=== PATIENT | male | born 1945 | race Caucasian/White ===

== ENCOUNTER 2021-07-12 06:51 | Inpatient (IN) ==
[2021-07-12 08:06] LABS: Basophils % 0.5 % (0.0-0.8); Eosinophils # 0.1 10*3/uL (0.0-0.87); Hematocrit 42.7 VOL% (42.0-52.0); Hemoglobin 14.3 GM/DL (14.0-18.0); Immature Granulocytes % 0.5 %; Immature Granulocytes Absolute 0.04 #; Lymphocytes % 12.3 % (21.2-54.2); Mean Corpuscular HGB Conc 33.5 GM/DL (32-36); Mean Corpuscular Volume 83.9 FL (87-102); Mean Platelet Volume 9.6 FL (9.6-12.0); Monocytes % 10.1 % (1.7-12.7); Neutrophils % 75.6 % (38.7-73.9); Platelet Count 332 T/CUMM (130-400); Red Blood Count 5.09 MC/CUMM (3.8-5.5); Red Cell Distribution Width 13.2 % (9.3-17.3); White Blood Count 8.2 T/CUMM (4-12)
[2021-07-12 08:30] LABS: Bilirubin,Total 0.8 MG/DL (0.20-1.00); Calcium 8.7 MG/DL (8.5-10.1); Osmolality,Calculated 279.2 MOS/KG (273-304); Potassium 2.6 MMOL/L (3.5-5.1); Total Protein 7.1 G/DL (6.4-8.2)
[2021-07-12] MEDS ORDERED: SODIUM CHLORIDE 0.9% 1,000 ML IV STA (08:37)
[2021-07-12] MEDS ORDERED: ACETAMINOPHEN 325 MG TABLET PO PRN (09:37)
[2021-07-12] MEDS ORDERED: PIPERACILLIN/TAZOBACTAM 3,375 MG in SODIUM CHLORIDE 0.9% 100 ML IV STA (09:37)
[2021-07-12] MEDS ORDERED: ONDANSETRON 4 MG/2 ML VIAL IV PRN ×2 (09:37→10:37)
[2021-07-12] MEDS: SODIUM CHLORIDE 0.9% 1,000 ML IV SCH ×2 (09:55→22:25)
[2021-07-12] MEDS ORDERED: SODIUM PHOSPHATE ENEMA 133 ML BOTTLE RECTAL ONE (10:00)
[2021-07-12] MEDS ORDERED: MORPHINE 2 MG/1 ML SYRINGE IV PRN ×2 (10:37)
[2021-07-12] MEDS ORDERED: SODIUM PHOSPHATE ENEMA 133 ML BOTTLE RECTAL STA (10:38)
[2021-07-12] MEDS ORDERED: hydrALAZINE 20 MG/1 ML VIAL IV PRN (10:39)
[2021-07-12] MEDS ORDERED: POTASSIUM CHLORIDE RIDER 10 MEQ/100 ML PREMIX IV PRN (10:41)
[2021-07-12] MEDS ORDERED: SODIUM CHLOR 0.9% KCL 20 MEQ 20 MEQ/1,000 ML BAG IV SCH (11:00)
[2021-07-12] MEDS: PIPERACILLIN/TAZOBACTAM 3,375 MG in SODIUM CHLORIDE 0.9% 100 ML IV SCH ×2 (11:01→23:22)
[2021-07-12] MEDS ORDERED: NEOSTIGMINE 10 MG/10 ML VIAL IV ONE (11:13)
[2021-07-12] MEDS ORDERED: ATROPINE 1 MG/10 ML SYRINGE ONE (11:46)
[2021-07-12 11:49] LABS: Bilirubin,Urine Negative (Negative); Blood, Urine Negative (Negative); Glucose,Urine (UA) Negative (Negative); Hyaline Casts,Urine 3 /LPF (0-3); Ketones,Urine 20 mg/dL (Negative); Mucus,Urine Occasional /LPF (Occasional); Nitrite,Urine Negative (Negative); Protein,Urine 30 MG/DL; RBC,Urine 2 /HPF (0-4); Squamous Epithelial Cell,Urine Occasional /HPF (0-10); Urine Appearance CLOUDY (Clear); Urine Color Yellow (Yellow); Urine Specific Gravity 1.028 (1.001-1.035); Urine Urobilinogen < 2.0 EU/DL (<2.0)
[2021-07-12] MEDS ORDERED: ATROPINE 1 MG/10 ML SYRINGE IV ONE (11:58)
[2021-07-12] MEDS ORDERED: INFLUENZA VIRUS VACCINE 0.5 ML SYRINGE IM ONE (17:09)
[2021-07-12] MEDS ORDERED: EPINEPHrine 1 MG/10 ML SYRINGE IV ONE (18:15)
[2021-07-12] MEDS ORDERED: SODIUM BICARBONATE 50 MEQ/50 ML SYRINGE IV ONE ×3 (18:16→22:58)
[2021-07-12] MEDS ORDERED: EPINEPHrine 1 MG/ML VIAL IV ONE (18:17)
[2021-07-12] MEDS ORDERED: CALCIUM CHLORIDE 1,000 MG/10 ML SYRINGE IV ONE (18:18)
[2021-07-12] MEDS ORDERED: SODIUM CHLORIDE 0.9% 10 ML VIAL IV ONE (18:20)
[2021-07-12] MEDS ORDERED: HEPARIN/NACL 0.9% 2 UNITS/ML 1,000 UNIT/500 ML BAG IV ONE (18:36)
[2021-07-12] MEDS ORDERED: ALBUMIN 5% 25.0 GM/500 ML VIAL IV ONE ×2 (18:37→21:16)
[2021-07-12] MEDS ORDERED: ROCURONIUM 50 MG/5 ML VIAL IV ONE (18:43)
[2021-07-12] MEDS ORDERED: fentaNYL 100 MCG/2 ML VIAL ONE (18:44)
[2021-07-12] MEDS ORDERED: MIDAZOLAM 2 MG/2 ML VIAL ONE ×3 (18:44→19:55)
[2021-07-12 18:47] LABS: Albumin 2.7 G/DL (3.4-5.0); Calcium 9.1 MG/DL (8.5-10.1); Osmolality,Calculated 277.5 MOS/KG (273-304); Potassium 3.8 MMOL/L (3.5-5.1)
[2021-07-12] MEDS ORDERED: PHENYLEPHRINE DRIP 40 MG/250 ML PREMIX IV ONE (18:47)
[2021-07-12] MEDS ORDERED: NOREPINEPHRINE 4 MG/4 ML VIAL IV ONE (18:59)
[2021-07-12] MEDS ORDERED: EPINEPHrine 1 MG/ML VIAL ONE ×2 (19:00→20:50)
[2021-07-12 19:06] LABS: Basophils % 0.3 % (0.0-0.8); Eosinophils # 0.1 10*3/uL (0.0-0.87); Eosinophils % 0.6 % (0.00-10.9); Hematocrit 44.3 VOL% (42.0-52.0); Hemoglobin 14.6 GM/DL (14.0-18.0); Immature Granulocytes % 0.5 %; Immature Granulocytes Absolute 0.04 #; Lymphocytes # 1.7 10*3/uL (1.4-4.0); Lymphocytes % 21.5 % (21.2-54.2); Mean Corpuscular Volume 84.9 FL (87-102); Mean Platelet Volume 10.4 FL (9.6-12.0); Neutrophils % 68.1 % (38.7-73.9); Platelet Count 382 T/CUMM (130-400); Red Blood Count 5.22 MC/CUMM (3.8-5.5); Red Cell Distribution Width 13.2 % (9.3-17.3)
[2021-07-12] MEDS ORDERED: KETAMINE 500 MG/10 ML VIAL ONE (19:07)
[2021-07-12 19:19] LABS: ABG Base Excess -18.2 MMOL/L (-2.5-2.5); ABG Oxygen Saturation 76.1 % (95-100); ABG PCO2 54.6 MM HG (35-48); ABG TCO2 13.3 MMOL/L (23-27); Glucose Heart Surgery 114 MG/DL (74-106); Hematocrit Heart Surgery 39.2 PERCENT (42-52); Hemoglobin Heart Surgery 12.7 G/DL (14.0-18.0); Potassium Heart/CVR 2.8 MMOL/L (3.5-5.1)
[2021-07-12 19:22] VITALS: BP 0/0
[2021-07-12 19:25] LABS: ABG PH 7.013 (7.35-7.45)
[2021-07-12 19:56] LABS: ABG Base Excess -12.9 MMOL/L (-2.5-2.5); ABG HCO3 14.5 MMOL/L (20-26); ABG Oxygen Saturation 98.6 % (95-100); ABG PCO2 38.5 MM HG (35-48); ABG TCO2 13.7 MMOL/L (23-27); Glucose Heart Surgery 109 MG/DL (74-106); Hematocrit Heart Surgery 33.8 PERCENT (42-52); Potassium Heart/CVR 2.8 MMOL/L (3.5-5.1)
[2021-07-12 20:00] LABS: ABG PH 7.192 (7.35-7.45)
[2021-07-12] MEDS ORDERED: SODIUM BICARBONATE 50 MEQ/50 ML VIAL IV ONE ×4 (20:04→22:57)
[2021-07-12] MEDS: PHENYLEPHRINE DRIP 40 MG/250 ML PREMIX IV PRN ×2 (20:55→22:24)
[2021-07-12] MEDS: NOREPINEPHRINE 8 MG in SODIUM CHLORIDE 0.9% 242 ML IV PRN (20:55)
[2021-07-12] MEDS ORDERED: LACTATED RINGERS 1,000 ML IV ONE ×2 (20:56→22:57)
[2021-07-12] MEDS ORDERED: fentaNYL INJ 1,250 MCG in SODIUM CHLORIDE 0.9% 225 ML IV PRN (20:56)
[2021-07-12] MEDS ORDERED: LACTATED RINGERS 1,000 ML IV SCH (21:00)
[2021-07-12] MEDS ORDERED: DOCUSATE SODIUM 100 MG CAPSULE PO SCH (21:00)
[2021-07-12] MEDS ORDERED: SEVOFLURANE 1 UNIT/15 MINUTE INH ONE (21:13)
[2021-07-12] MEDS ORDERED: EPINEPHrine 1 MG/10 ML SYRINGE ONE (21:13)
[2021-07-12] MEDS ORDERED: LACTATED RINGERS 2,000 ML IV ONE (21:14)
[2021-07-12] MEDS ORDERED: PHENYLEPHRINE DRIP 20 MG/250 ML PREMIX IV ONE (21:16)
[2021-07-12 21:33] LABS: Basophils % 0.3 % (0.0-0.8); Hemoglobin 10.3 GM/DL (14.0-18.0); Immature Granulocytes % 3.5 %; Immature Granulocytes Absolute 0.12 #; Lymphocytes # 0.4 10*3/uL (1.4-4.0); Lymphocytes % 11.5 % (21.2-54.2); Mean Corpuscular HGB Conc 32.2 GM/DL (32-36); Mean Corpuscular Volume 87.9 FL (87-102); Mean Platelet Volume 8.9 FL (9.6-12.0); Monocytes % 5.9 % (1.7-12.7); Neutrophils % 78.8 % (38.7-73.9); Platelet Count 205 T/CUMM (130-400); Red Blood Count 3.64 MC/CUMM (3.8-5.5); Red Cell Distribution Width 13.2 % (9.3-17.3); White Blood Count 3.4 T/CUMM (4-12)
[2021-07-12 21:37] LABS: ABG Base Excess -10.6 MMOL/L (-2.5-2.5); ABG Oxygen Saturation 92.7 % (95-100); ABG PCO2 59.6 MM HG (35-48); ABG PO2 93.3 MM HG (80-95); ABG TCO2 18.4 MMOL/L (23-27)
[2021-07-12 21:50] LABS: Calcium 7.5 MG/DL (8.5-10.1); Potassium 2.6 MMOL/L (3.5-5.1)
[2021-07-12 22:05] LABS: Acanthocytes 1+; Eosinophils 1 % (0-10); Lymphocytes 21 % (20-55); Platelet Estimate Adequate; Segmented Neutrophils 71 % (50-85); Total Cells Counted 100
[2021-07-12] MEDS ORDERED: POTASSIUM CHLORIDE RIDER 10 MEQ/100 ML PREMIX IV ONE (22:14)
[2021-07-12] MEDS: POTASSIUM CHLORIDE RIDER 10 MEQ/100 ML PREMIX IV PRN ×2 (22:23→23:30)
[2021-07-12 22:49] LABS: ABG HCO3 17.9 MMOL/L (20-26); ABG Oxygen Saturation 96.3 % (95-100); ABG PCO2 53.5 MM HG (35-48); ABG TCO2 19.2 MMOL/L (23-27)
[2021-07-12 22:51] LABS: ABG PH 7.192 (7.35-7.45)
[2021-07-12] MEDS ORDERED: VANCOMYCIN INJ 1,500 MG in SODIUM CHLORIDE 0.9% 500 ML IV PRN (22:59)
[2021-07-12] MEDS ORDERED: VANCOMYCIN INJ 1,500 MG in SODIUM CHLORIDE 0.9% 500 ML IV ONE (23:00)
[2021-07-12] MEDS ORDERED: CALCIUM GLUCONATE 1,000 MG in SODIUM CHLORIDE 0.9% 100 ML IV ONE (23:38)
[2021-07-12] MEDS: SODIUM BICARB INJ 100 MEQ in STERILE WATER INJ 1,000 ML IV SCH (23:40)
[2021-07-13] MEDS: PHENYLEPHRINE INJ 160 MG in SODIUM CHLORIDE 0.9% 234 ML IV PRN ×4 (00:07→14:50)
[2021-07-13] MEDS: POTASSIUM CHLORIDE RIDER 10 MEQ/100 ML PREMIX IV PRN ×3 (00:56→02:58)
[2021-07-13] MEDS: NOREPINEPHRINE 16 MG in SODIUM CHLORIDE 0.9% 234 ML IV PRN ×7 (01:14→21:30)
[2021-07-13] MEDS ORDERED: LACTATED RINGERS 1,000 ML IV ONE ×5 (03:15→15:00)
[2021-07-13 03:18] LABS: ABG Base Excess -7.5 MMOL/L (-2.5-2.5); ABG HCO3 18.3 MMOL/L (20-26); ABG Oxygen Saturation 98.4 % (95-100); ABG PCO2 47.2 MM HG (35-48); ABG PH 7.235 (7.35-7.45); ABG TCO2 18.4 MMOL/L (23-27)
[2021-07-13 03:29] LABS: Basophils % 0.4 % (0.0-0.8); Hematocrit 32.7 VOL% (42.0-52.0); Hemoglobin 10.7 GM/DL (14.0-18.0); Lymphocytes # 0.3 10*3/uL (1.4-4.0); Lymphocytes % 12.7 % (21.2-54.2); Mean Corpuscular HGB Conc 32.7 GM/DL (32-36); Mean Corpuscular Volume 86.1 FL (87-102); Mean Platelet Volume 9.5 FL (9.6-12.0); Monocytes % 8.6 % (1.7-12.7); Neutrophils % 78.3 % (38.7-73.9); Platelet Count 221 T/CUMM (130-400); Red Cell Distribution Width 13.6 % (9.3-17.3); White Blood Count 2.7 T/CUMM (4-12)
[2021-07-13 03:45] LABS: Calcium 7.6 MG/DL (8.5-10.1); Osmolality,Calculated 294.3 MOS/KG (273-304); Potassium 3.1 MMOL/L (3.5-5.1)
[2021-07-13 04:00] LABS: Band Neutrophils 5 % (0-10); Lymphocytes 17 % (20-55); Platelet Estimate Adequate; Segmented Neutrophils 71 % (50-85); Total Cells Counted 100
[2021-07-13] MEDS: PIPERACILLIN/TAZOBACTAM 3,375 MG in SODIUM CHLORIDE 0.9% 100 ML IV SCH ×3 (04:20→18:30)
[2021-07-13 04:41] LABS: ABG Base Excess -9.4 MMOL/L (-2.5-2.5); ABG HCO3 16.9 MMOL/L (20-26); ABG Oxygen Saturation 98.6 % (95-100); ABG PCO2 41.8 MM HG (35-48); ABG PH 7.235 (7.35-7.45); ABG TCO2 16.3 MMOL/L (23-27)
[2021-07-13] MEDS: POTASSIUM CHLORIDE RIDER 20 MEQ/100 ML PREMIX IV PRN ×4 (04:48→23:45)
[2021-07-13] MEDS ORDERED: SODIUM BICARBONATE 50 MEQ/50 ML VIAL IV ONE (05:03)
[2021-07-13] MEDS ORDERED: ALBUMIN 5% 12.5 GM/250 ML VIAL IV ONE ×2 (06:22→06:25)
[2021-07-13] MEDS ORDERED: NOREPINEPHRINE 4 MG/4 ML VIAL IV ONE (06:36)
[2021-07-13] MEDS ORDERED: ROCURONIUM 500 MG in SODIUM CHLORIDE 0.9% 500 ML IV PRN (08:00)
[2021-07-13] MEDS: SODIUM BICARB INJ 100 MEQ in STERILE WATER INJ 1,000 ML IV SCH ×3 (08:30→21:30)
[2021-07-13] MEDS: VASOPRESSIN 100 UNITS in SODIUM CHLORIDE 0.9% 95 ML IV PRN (09:00)
[2021-07-13] MEDS: PANTOPRAZOLE 40 MG VIAL IV SCH (09:00)
[2021-07-13] MEDS ORDERED: amLODIPine 5 MG TABLET PO SCH (09:00)
[2021-07-13] MEDS ORDERED: CLINDAMYCIN INJ 900 MG/50 ML PREMIX IV ONE (09:09)
[2021-07-13] MEDS: MIDAZOLAM 100 MG in SODIUM CHLORIDE 0.9% 80 ML IV PRN (09:40)
[2021-07-13] MEDS ORDERED: MIDAZOLAM 2 MG/2 ML VIAL ONE (09:46)
[2021-07-13] MEDS ORDERED: PHENYLEPHRINE 1 MG/10 ML SYRINGE IV ONE (10:35)
[2021-07-13] MEDS ORDERED: SEVOFLURANE 1 UNIT/15 MINUTE INH ONE (10:35)
[2021-07-13] MEDS: NOREPINEPHRINE 8 MG in SODIUM CHLORIDE 0.9% 242 ML IV PRN (12:05)
[2021-07-13 12:08] LABS: ABG Base Excess -10.6 MMOL/L (-2.5-2.5); ABG HCO3 15.6 MMOL/L (20-26); ABG Oxygen Saturation 98.4 % (95-100); ABG PCO2 35.4 MM HG (35-48); ABG PH 7.261 (7.35-7.45); ABG PO2 178.8 MM HG (80-95); ABG TCO2 16.7 MMOL/L (23-27)
[2021-07-13 18:21] LABS: ABG Base Excess -9.3 MMOL/L (-2.5-2.5); ABG Oxygen Saturation 99.4 % (95-100); ABG PCO2 35.1 MM HG (35-48); ABG PH 7.283 (7.35-7.45); ABG TCO2 15.2 MMOL/L (23-27); Glucose Heart Surgery 116 MG/DL (74-106); Hematocrit Heart Surgery 32.2 PERCENT (42-52); Hemoglobin Heart Surgery 10.4 G/DL (14.0-18.0); Potassium Heart/CVR 2.9 MMOL/L (3.5-5.1)
[2021-07-14] MEDS: NOREPINEPHRINE 16 MG in SODIUM CHLORIDE 0.9% 234 ML IV PRN ×9 (00:05→23:35)
[2021-07-14 02:11] LABS: Basophils % 0.1 % (0.0-0.8); Hematocrit 29.3 VOL% (42.0-52.0); Hemoglobin 9.8 GM/DL (14.0-18.0); Immature Granulocytes % 1.6 %; Immature Granulocytes Absolute 0.16 #; Lymphocytes # 0.6 10*3/uL (1.4-4.0); Lymphocytes % 6.4 % (21.2-54.2); Mean Corpuscular HGB Conc 33.4 GM/DL (32-36); Mean Corpuscular Volume 84.7 FL (87-102); Mean Platelet Volume 10.2 FL (9.6-12.0); Monocytes % 4.5 % (1.7-12.7); Neutrophils % 87.4 % (38.7-73.9); Platelet Count 138 T/CUMM (130-400); Red Blood Count 3.46 MC/CUMM (3.8-5.5); Red Cell Distribution Width 13.6 % (9.3-17.3)
[2021-07-14 02:12] LABS: ABG Base Excess -5.8 MMOL/L (-2.5-2.5); ABG HCO3 19.6 MMOL/L (20-26); ABG Oxygen Saturation 99.1 % (95-100); ABG PCO2 33.7 MM HG (35-48); ABG PH 7.357 (7.35-7.45); ABG TCO2 17.3 MMOL/L (23-27)
[2021-07-14 02:41] LABS: Lymphocytes 12 % (20-55); Segmented Neutrophils 86 % (50-85); Total Cells Counted 100
[2021-07-14 02:42] LABS: Acanthocytes 1+; Albumin 1.4 G/DL (3.4-5.0); Bilirubin,Total 1.4 MG/DL (0.20-1.00); Calcium 6.4 MG/DL (8.5-10.1); Osmolality,Calculated 284.5 MOS/KG (273-304); Platelet Estimate Decreased; Potassium 3.6 MMOL/L (3.5-5.1); Total Protein 3.6 G/DL (6.4-8.2)
[2021-07-14] MEDS: DEXTROSE 10% 250 ML BAG IV PRN ×3 (02:44→23:50)
[2021-07-14] MEDS: PIPERACILLIN/TAZOBACTAM 3,375 MG in SODIUM CHLORIDE 0.9% 100 ML IV SCH ×3 (04:25→18:30)
[2021-07-14] MEDS: SODIUM BICARB INJ 100 MEQ in STERILE WATER INJ 1,000 ML IV SCH ×4 (04:45→20:52)
[2021-07-14] MEDS: POTASSIUM CHLORIDE RIDER 10 MEQ/100 ML PREMIX IV PRN (05:05)
[2021-07-14] MEDS ORDERED: NOREPINEPHRINE 4 MG/4 ML VIAL IV ONE ×2 (07:51→18:55)
[2021-07-14] MEDS ORDERED: LACTATED RINGERS 1,000 ML IV ONE (08:06)
[2021-07-14] MEDS: PANTOPRAZOLE 40 MG VIAL IV SCH (08:32)
[2021-07-14] MEDS ORDERED: ROCURONIUM 50 MG/5 ML VIAL IV ONE (08:58)
[2021-07-14] MEDS ORDERED: MIDAZOLAM 2 MG/2 ML VIAL ONE (08:58)
[2021-07-14] MEDS ORDERED: SODIUM CHLORIDE 0.9% 100 ML IV ONE (08:58)
[2021-07-14] MEDS ORDERED: EPINEPHrine 1 MG/ML VIAL ONE (08:58)
[2021-07-14] MEDS: HYDROCORTISONE 100 MG VIAL IV SCH ×3 (09:05→21:15)
[2021-07-14] MEDS: MIDAZOLAM 100 MG in SODIUM CHLORIDE 0.9% 80 ML IV PRN (09:09)
[2021-07-14] MEDS ORDERED: ALBUMIN 5% 0 GM/0 ML VIAL IV ONE (09:11)
[2021-07-14] MEDS ORDERED: VANCOMYCIN INJ 1,500 MG in SODIUM CHLORIDE 0.9% 500 ML IV ONE (09:30)
[2021-07-14] MEDS ORDERED: ALBUMIN 5% 25 GM/500 ML VIAL IV ONE (15:17)
[2021-07-14] MEDS: DEXTROSE 5% LACTATED RINGERS 1,000 ML IV SCH (18:00)
[2021-07-15] MEDS: HYDROCORTISONE 100 MG VIAL IV SCH ×4 (02:30→21:25)
[2021-07-15] MEDS: PIPERACILLIN/TAZOBACTAM 3,375 MG in SODIUM CHLORIDE 0.9% 100 ML IV SCH ×3 (02:30→18:30)
[2021-07-15] MEDS: SODIUM BICARB INJ 100 MEQ in STERILE WATER INJ 1,000 ML IV SCH ×4 (02:35→20:00)
[2021-07-15 03:58] LABS: ABG Base Excess -5.2 MMOL/L (-2.5-2.5); ABG HCO3 18.6 MMOL/L (20-26); ABG Oxygen Saturation 94.2 % (95-100); ABG PCO2 29.8 MM HG (35-48); ABG PH 7.413 (7.35-7.45); ABG PO2 80.3 MM HG (80-95); ABG TCO2 19.5 MMOL/L (23-27)
[2021-07-15 04:06] LABS: Basophils # 0.1 10*3/uL (0.0-0.2); Basophils % 0.6 % (0.0-0.8); Hematocrit 25.4 VOL% (42.0-52.0); Hemoglobin 8.4 GM/DL (14.0-18.0); Immature Granulocytes % 0.2 %; Immature Granulocytes Absolute 0.04 #; Lymphocytes # 0.8 10*3/uL (1.4-4.0); Lymphocytes % 3.3 % (21.2-54.2); Mean Corpuscular HGB Conc 33.1 GM/DL (32-36); Mean Corpuscular Volume 85.2 FL (87-102); Mean Platelet Volume 10.8 FL (9.6-12.0); Monocytes % 2.1 % (1.7-12.7); NRBC # 0.03 10*3/uL; Neutrophils % 93.8 % (38.7-73.9); Platelet Count 120 T/CUMM (130-400); Red Blood Count 2.98 MC/CUMM (3.8-5.5); Red Cell Distribution Width 13.9 % (9.3-17.3); White Blood Count 22.9 T/CUMM (4-12)
[2021-07-15 04:40] LABS: Albumin 1.5 G/DL (3.4-5.0); Bilirubin,Total 3.1 MG/DL (0.20-1.00); Osmolality,Calculated 277.2 MOS/KG (273-304); Potassium 4.8 MMOL/L (3.5-5.1); Total Protein 3.6 G/DL (6.4-8.2)
[2021-07-15 04:47] LABS: Calcium 5.8 MG/DL (8.5-10.1)
[2021-07-15 05:14] LABS: Acanthocytes 1+; Lymphocytes 7 % (20-55); Platelet Estimate Decreased; Segmented Neutrophils 87 % (50-85); Total Cells Counted 100
[2021-07-15 05:15] LABS: Schistocytes 1+
[2021-07-15] MEDS ORDERED: CALCIUM GLUCONATE RIDER 1,000 MG/50 ML PREMIX IV ONE (05:19)
[2021-07-15] MEDS: NOREPINEPHRINE 16 MG in SODIUM CHLORIDE 0.9% 234 ML IV PRN ×3 (07:15→18:00)
[2021-07-15] MEDS ORDERED: CALCIUM GLUCONATE RIDER 2,000 MG/100 ML PREMIX IV ONE (08:38)
[2021-07-15] MEDS: PANTOPRAZOLE 40 MG VIAL IV SCH (09:19)
[2021-07-15] MEDS: DEXTROSE 5% LACTATED RINGERS 1,000 ML IV SCH (11:58)
[2021-07-15] MEDS: VASOPRESSIN 100 UNITS in SODIUM CHLORIDE 0.9% 95 ML IV PRN (16:10)
[2021-07-15] MEDS ORDERED: DEXTROSE 10% 1,000 ML IV PRN (17:00)
[2021-07-15] MEDS ORDERED: DEXTROSE 70% IV SCH (17:00)
[2021-07-15] MEDS ORDERED: AMINO ACIDS 10% IV SCH (17:00)
[2021-07-15 21:01] LABS: Osmolality,Calculated 277.7 MOS/KG (273-304); Potassium 4.6 MMOL/L (3.5-5.1)
[2021-07-15 21:58] LABS: Hepatitis B Core IgM Quant 0.25 Index; Hepatitis B Surface Ag Quant 0.25 Index; Hepatitis B Surface Ag Result Non-Reactive (NonReactive); Hepatitis C Virus Ab Quant 0.08 Index; Hepatitis C Virus Ab Result Non-Reactive (NonReactive)
[2021-07-16] MEDS: NOREPINEPHRINE 16 MG in SODIUM CHLORIDE 0.9% 234 ML IV PRN ×5 (00:26→23:04)
[2021-07-16] MEDS: HYDROCORTISONE 100 MG VIAL IV SCH ×4 (02:55→21:06)
[2021-07-16] MEDS: PIPERACILLIN/TAZOBACTAM 3,375 MG in SODIUM CHLORIDE 0.9% 100 ML IV SCH ×3 (02:58→18:30)
[2021-07-16 03:56] LABS: ABG Base Excess 0.4 MMOL/L (-2.5-2.5); ABG HCO3 24.8 MMOL/L (20-26); ABG Oxygen Saturation 97.5 % (95-100); ABG PH 7.474 (7.35-7.45); ABG TCO2 21.7 MMOL/L (23-27)
[2021-07-16 04:06] LABS: Basophils # 0.1 10*3/uL (0.0-0.2); Basophils % 0.4 % (0.0-0.8); Eosinophils % 0.1 % (0.00-10.9); Hematocrit 26.8 VOL% (42.0-52.0); Hemoglobin 8.7 GM/DL (14.0-18.0); Immature Granulocytes % 4.6 %; Immature Granulocytes Absolute 1.17 #; Lymphocytes # 0.6 10*3/uL (1.4-4.0); Lymphocytes % 2.5 % (21.2-54.2); Mean Corpuscular HGB Conc 32.5 GM/DL (32-36); Mean Corpuscular Volume 83.8 FL (87-102); Monocytes % 4.8 % (1.7-12.7); NRBC # 0.08 10*3/uL; Neutrophils % 87.6 % (38.7-73.9); Platelet Count 91 T/CUMM (130-400); Red Cell Distribution Width 13.8 % (9.3-17.3); White Blood Count 25.7 T/CUMM (4-12)
[2021-07-16 04:23] LABS: Hypochromia 1+; Lymphocytes 4 % (20-55); Microcytosis 1+; Platelet Estimate Decreased; Segmented Neutrophils 89 % (50-85); Total Cells Counted 100
[2021-07-16 04:28] LABS: Albumin 1.3 G/DL (3.4-5.0); Bilirubin,Total 4.3 MG/DL (0.20-1.00); Osmolality,Calculated 281.8 MOS/KG (273-304); Potassium 4.5 MMOL/L (3.5-5.1); Total Protein 3.5 G/DL (6.4-8.2)
[2021-07-16 04:30] LABS: Osmolality,Calculated 279.8 MOS/KG (273-304); Potassium 4.5 MMOL/L (3.5-5.1)
[2021-07-16 04:32] LABS: Calcium 5.7 MG/DL (8.5-10.1); Calcium 5.8 MG/DL (8.5-10.1)
[2021-07-16] MEDS ORDERED: CALCIUM GLUCONATE RIDER 2,000 MG/100 ML PREMIX IV ONE (04:33)
[2021-07-16] MEDS: SODIUM BICARB INJ 100 MEQ in STERILE WATER INJ 1,000 ML IV SCH ×2 (06:23→17:25)
[2021-07-16] MEDS ORDERED: GLUCAGON 1 MG VIAL IM PRN (08:57)
[2021-07-16] MEDS ORDERED: DEXTROSE 10% 250 ML BAG IV PRN (09:01)
[2021-07-16] MEDS: PANTOPRAZOLE 40 MG VIAL IV SCH (09:51)
[2021-07-16] MEDS ORDERED: HEPARIN 10,000 UNIT/10 ML VIAL IV SCH (11:45)
[2021-07-16] MEDS ORDERED: VANCOMYCIN INJ 1,500 MG in SODIUM CHLORIDE 0.9% 500 ML IV ONE (12:00)
[2021-07-16] MEDS ORDERED: FAT EMULSION 20% 250 ML IV SCH (14:00)
[2021-07-16] MEDS ORDERED: DEXTROSE 70% IV SCH (17:00)
[2021-07-16] MEDS ORDERED: AMINO ACIDS 10% IV SCH (17:00)
[2021-07-17] MEDS: HYDROCORTISONE 100 MG VIAL IV SCH ×3 (02:24→13:30)
[2021-07-17] MEDS: PIPERACILLIN/TAZOBACTAM 3,375 MG in SODIUM CHLORIDE 0.9% 100 ML IV SCH (02:27)
[2021-07-17] MEDS: SODIUM BICARB INJ 100 MEQ in STERILE WATER INJ 1,000 ML IV SCH ×2 (02:33→16:45)
[2021-07-17 04:49] LABS: ABG Base Excess 0.2 MMOL/L (-2.5-2.5); ABG HCO3 24.6 MMOL/L (20-26); ABG Oxygen Saturation 98.6 % (95-100); ABG PCO2 32.6 MM HG (35-48); ABG PH 7.466 (7.35-7.45); ABG TCO2 21.5 MMOL/L (23-27)
[2021-07-17 04:57] LABS: Basophils # 0.1 10*3/uL (0.0-0.2); Basophils % 0.2 % (0.0-0.8); Hemoglobin 8.7 GM/DL (14.0-18.0); Immature Granulocytes % 1.3 %; Immature Granulocytes Absolute 0.33 #; Lymphocytes # 0.8 10*3/uL (1.4-4.0); Lymphocytes % 3.2 % (21.2-54.2); Mean Corpuscular HGB Conc 33.5 GM/DL (32-36); Mean Corpuscular Volume 84.4 FL (87-102); Monocytes % 9.9 % (1.7-12.7); NRBC # 0.13 10*3/uL; Neutrophils % 85.4 % (38.7-73.9); Red Blood Count 3.08 MC/CUMM (3.8-5.5); Red Cell Distribution Width 13.8 % (9.3-17.3); White Blood Count 24.9 T/CUMM (4-12)
[2021-07-17] MEDS: NOREPINEPHRINE 16 MG in SODIUM CHLORIDE 0.9% 234 ML IV PRN ×2 (05:00→16:45)
[2021-07-17 05:02] LABS: Platelet Count 66 T/CUMM (130-400)
[2021-07-17 05:15] LABS: Hypochromia 1+; Lymphocytes 6 % (20-55); Microcytosis 1+; Nucleated Red Blood Cells 1 (0-5); Platelet Estimate Decreased; Segmented Neutrophils 89 % (50-85); Total Cells Counted 100
[2021-07-17 05:22] LABS: Albumin 1.2 G/DL (3.4-5.0); Bilirubin,Total 3.6 MG/DL (0.20-1.00); Osmolality,Calculated 290.7 MOS/KG (273-304); Potassium 3.9 MMOL/L (3.5-5.1); Total Protein 3.6 G/DL (6.4-8.2)
[2021-07-17 05:32] LABS: Calcium 5.8 MG/DL (8.5-10.1)
[2021-07-17] MEDS ORDERED: CALCIUM GLUCONATE RIDER 2,000 MG/100 ML PREMIX IV ONE (05:37)
[2021-07-17] MEDS: MEROPENEM 500 MG in SODIUM CHLORIDE 0.9% 100 ML IV SCH ×2 (10:30→17:30)
[2021-07-17] MEDS: PANTOPRAZOLE 40 MG VIAL IV SCH (10:30)
[2021-07-17] MEDS: INSULIN REGULAR 100 UNIT/ML SUBCUT SCH ×2 (12:45→18:23)
[2021-07-18] MEDS: INSULIN REGULAR 100 UNIT/ML SUBCUT SCH ×4 (02:41→18:28)
[2021-07-18] MEDS: MEROPENEM 500 MG in SODIUM CHLORIDE 0.9% 100 ML IV SCH ×3 (02:41→18:24)
[2021-07-18] MEDS: HYDROCORTISONE 100 MG VIAL IV SCH ×2 (02:41→15:19)
[2021-07-18 05:27] LABS: Basophils % 0.2 % (0.0-0.8); Hematocrit 26.4 VOL% (42.0-52.0); Hemoglobin 8.8 GM/DL (14.0-18.0); Immature Granulocytes % 1.1 %; Lymphocytes # 0.7 10*3/uL (1.4-4.0); Lymphocytes % 3.9 % (21.2-54.2); Mean Corpuscular HGB Conc 33.3 GM/DL (32-36); Mean Platelet Volume 12.4 FL (9.6-12.0); Monocytes % 9.1 % (1.7-12.7); NRBC # 0.08 10*3/uL; Neutrophils % 85.7 % (38.7-73.9); Red Blood Count 3.18 MC/CUMM (3.8-5.5); Red Cell Distribution Width 13.8 % (9.3-17.3); White Blood Count 18.1 T/CUMM (4-12)
[2021-07-18 05:28] LABS: ABG Base Excess 0.4 MMOL/L (-2.5-2.5); ABG HCO3 23.2 MMOL/L (20-26); ABG Oxygen Saturation 97.9 % (95-100); ABG PH 7.479 (7.35-7.45); ABG PO2 107.9 MM HG (80-95); ABG TCO2 24.2 MMOL/L (23-27)
[2021-07-18 05:32] LABS: Platelet Count 70 T/CUMM (130-400)
[2021-07-18 05:37] LABS: Bilirubin,Total 4.8 MG/DL (0.20-1.00); Calcium 6.6 MG/DL (8.5-10.1); Osmolality,Calculated 289.2 MOS/KG (273-304); Potassium 4.2 MMOL/L (3.5-5.1); Total Protein 3.7 G/DL (6.4-8.2)
[2021-07-18 05:53] LABS: Band Neutrophils 1 % (0-10); Hypochromia 1+; Lymphocytes 4 % (20-55); Microcytosis 1+; Platelet Estimate Decreased; Segmented Neutrophils 91 % (50-85); Total Cells Counted 100
[2021-07-18] MEDS: FAMOTIDINE 20 MG TABLET PER TUBE SCH (09:38)
[2021-07-18] MEDS: NOREPINEPHRINE 16 MG in SODIUM CHLORIDE 0.9% 234 ML IV PRN ×2 (09:44→16:53)
[2021-07-18] MEDS: SODIUM BICARB INJ 100 MEQ in STERILE WATER INJ 1,000 ML IV SCH (13:25)
[2021-07-19] MEDS: INSULIN REGULAR 100 UNIT/ML SUBCUT SCH ×4 (00:19→18:00)
[2021-07-19] MEDS: MEROPENEM 500 MG in SODIUM CHLORIDE 0.9% 100 ML IV SCH (02:25)
[2021-07-19] MEDS: HYDROCORTISONE 100 MG VIAL IV SCH ×2 (02:37→15:29)
[2021-07-19] MEDS: NOREPINEPHRINE 16 MG in SODIUM CHLORIDE 0.9% 234 ML IV PRN ×2 (03:47→18:55)
[2021-07-19 04:40] LABS: ABG Base Excess 0.1 MMOL/L (-2.5-2.5); ABG HCO3 23.5 MMOL/L (20-26); ABG Oxygen Saturation 97.8 % (95-100); ABG PCO2 33.2 MM HG (35-48); ABG PH 7.467 (7.35-7.45); ABG PO2 112.8 MM HG (80-95); ABG TCO2 24.5 MMOL/L (23-27)
[2021-07-19 04:48] LABS: Basophils % 0.2 % (0.0-0.8); Hematocrit 27.1 VOL% (42.0-52.0); Immature Granulocytes % 2.3 %; Immature Granulocytes Absolute 0.44 #; Mean Corpuscular HGB Conc 33.2 GM/DL (32-36); Mean Corpuscular Volume 82.9 FL (87-102); Mean Platelet Volume 12.4 FL (9.6-12.0); Monocytes % 8.1 % (1.7-12.7); NRBC # 0.21 10*3/uL; Neutrophils % 84.4 % (38.7-73.9); Platelet Count 112 T/CUMM (130-400); Red Blood Count 3.27 MC/CUMM (3.8-5.5); Red Cell Distribution Width 14.1 % (9.3-17.3); White Blood Count 19.1 T/CUMM (4-12)
[2021-07-19 05:12] LABS: Calcium 6.6 MG/DL (8.5-10.1); Osmolality,Calculated 298.9 MOS/KG (273-304); Potassium 4.9 MMOL/L (3.5-5.1)
[2021-07-19 05:13] LABS: Hypochromia 1+; Lymphocytes 3 % (20-55); Microcytosis 1+; Nucleated Red Blood Cells 1 (0-5); Platelet Estimate Decreased; Segmented Neutrophils 89 % (50-85); Total Cells Counted 100
[2021-07-19] MEDS: SODIUM BICARB INJ 100 MEQ in STERILE WATER INJ 1,000 ML IV SCH (09:25)
[2021-07-19] MEDS: FAMOTIDINE 20 MG TABLET PER TUBE SCH (09:25)
[2021-07-19] MEDS ORDERED: ALTEPLASE 2 MG VIAL IV PRN (10:35)
[2021-07-20] MEDS: INSULIN REGULAR 100 UNIT/ML SUBCUT SCH ×3 (01:04→18:57)
[2021-07-20] MEDS: HYDROCORTISONE 100 MG VIAL IV SCH ×2 (02:11→16:00)
[2021-07-20] MEDS: MEROPENEM 500 MG in SODIUM CHLORIDE 0.9% 100 ML IV SCH (02:11)
[2021-07-20 05:19] LABS: ABG Base Excess -0.6 MMOL/L (-2.5-2.5); ABG HCO3 23.9 MMOL/L (20-26); ABG Oxygen Saturation 98.3 % (95-100); ABG PCO2 32.1 MM HG (35-48); ABG PH 7.458 (7.35-7.45); ABG TCO2 20.8 MMOL/L (23-27)
[2021-07-20 05:39] LABS: INR 1.4; PT Patient Result 15.4 SECS (10.5-12.0)
[2021-07-20 05:42] LABS: Basophils % 0.2 % (0.0-0.8); Hematocrit 26.5 VOL% (42.0-52.0); Hemoglobin 9.1 GM/DL (14.0-18.0); Immature Granulocytes % 2.9 %; Immature Granulocytes Absolute 0.65 #; Lymphocytes # 0.9 10*3/uL (1.4-4.0); Mean Corpuscular HGB Conc 34.3 GM/DL (32-36); Mean Corpuscular Volume 81.3 FL (87-102); Mean Platelet Volume 12.4 FL (9.6-12.0); Monocytes % 6.6 % (1.7-12.7); NRBC # 0.34 10*3/uL; Neutrophils % 86.3 % (38.7-73.9); Platelet Count 169 T/CUMM (130-400); Red Blood Count 3.26 MC/CUMM (3.8-5.5); White Blood Count 22.1 T/CUMM (4-12)
[2021-07-20 05:43] LABS: Albumin 1.1 G/DL (3.4-5.0); Bilirubin,Total 7.4 MG/DL (0.20-1.00); Calcium 7.1 MG/DL (8.5-10.1); Osmolality,Calculated 294.2 MOS/KG (273-304); Potassium 5.2 MMOL/L (3.5-5.1); Total Protein 4.1 G/DL (6.4-8.2)
[2021-07-20 06:06] LABS: Band Neutrophils 1 % (0-10); Hypochromia 1+; Lymphocytes 2 % (20-55); Microcytosis 1+; Ovalocytes Slight; Platelet Estimate Adequate; Segmented Neutrophils 90 % (50-85); Total Cells Counted 100
[2021-07-20] MEDS: SODIUM BICARB INJ 100 MEQ in STERILE WATER INJ 1,000 ML IV SCH (06:55)
[2021-07-20] MEDS: NOREPINEPHRINE 16 MG in SODIUM CHLORIDE 0.9% 234 ML IV PRN ×3 (08:15→20:20)
[2021-07-20] MEDS: FAMOTIDINE 20 MG TABLET PER TUBE SCH (08:53)
[2021-07-21] MEDS: INSULIN REGULAR 100 UNIT/ML SUBCUT SCH ×4 (03:09→19:39)
[2021-07-21] MEDS: MEROPENEM 500 MG in SODIUM CHLORIDE 0.9% 100 ML IV SCH (03:14)
[2021-07-21] MEDS: HYDROCORTISONE 100 MG VIAL IV SCH ×2 (03:14→16:25)
[2021-07-21] MEDS: SODIUM BICARB INJ 100 MEQ in STERILE WATER INJ 1,000 ML IV SCH (04:46)
[2021-07-21 05:10] LABS: Basophils % 0.2 % (0.0-0.8); Hematocrit 24.5 VOL% (42.0-52.0); Hemoglobin 8.3 GM/DL (14.0-18.0); Immature Granulocytes % 3.4 %; Immature Granulocytes Absolute 0.91 #; Lymphocytes # 0.9 10*3/uL (1.4-4.0); Lymphocytes % 3.4 % (21.2-54.2); Mean Corpuscular HGB Conc 33.9 GM/DL (32-36); Mean Corpuscular Volume 81.9 FL (87-102); Mean Platelet Volume 11.9 FL (9.6-12.0); Monocytes % 5.9 % (1.7-12.7); NRBC # 0.32 10*3/uL; Neutrophils % 87.1 % (38.7-73.9); Platelet Count 194 T/CUMM (130-400); Red Blood Count 2.99 MC/CUMM (3.8-5.5); Red Cell Distribution Width 14.4 % (9.3-17.3); White Blood Count 26.4 T/CUMM (4-12)
[2021-07-21 05:24] LABS: Bilirubin,Total 7.8 MG/DL (0.20-1.00); Osmolality,Calculated 299.9 MOS/KG (273-304); Potassium 5.3 MMOL/L (3.5-5.1)
[2021-07-21 05:32] LABS: INR 1.4; PT Patient Result 15.7 SECS (10.5-12.0)
[2021-07-21 05:40] LABS: ABG HCO3 24.4 MMOL/L (20-26); ABG Oxygen Saturation 96.7 % (95-100); ABG PCO2 31.6 MM HG (35-48); ABG PH 7.473 (7.35-7.45); ABG TCO2 21.4 MMOL/L (23-27)
[2021-07-21 05:47] LABS: Anisocytosis 2+; Band Neutrophils 6 % (0-10); Lymphocytes 6 % (20-55); Nucleated Red Blood Cells 2 (0-5); Platelet Estimate Normal; Segmented Neutrophils 81 % (50-85); Total Cells Counted 100
[2021-07-21 05:48] LABS: Burr Cells Few; Ovalocytes Few
[2021-07-21] MEDS: FAMOTIDINE 20 MG TABLET PER TUBE SCH (08:25)
[2021-07-21] MEDS: NOREPINEPHRINE 16 MG in SODIUM CHLORIDE 0.9% 234 ML IV PRN ×2 (11:45→22:35)
[2021-07-21] MEDS ORDERED: VANCOMYCIN INJ 1,500 MG in SODIUM CHLORIDE 0.9% 500 ML IV ONE (13:00)
[2021-07-21] MEDS: HEPARIN 5,000 UNIT/1 ML VIAL SUBCUT SCH (21:09)
[2021-07-22] MEDS: INSULIN REGULAR 100 UNIT/ML SUBCUT SCH ×4 (00:14→18:14)
[2021-07-22] MEDS: MEROPENEM 500 MG in SODIUM CHLORIDE 0.9% 100 ML IV SCH (02:37)
[2021-07-22] MEDS: HYDROCORTISONE 100 MG VIAL IV SCH ×2 (02:38→15:06)
[2021-07-22 04:54] LABS: Basophils # 0.1 10*3/uL (0.0-0.2); Basophils % 0.3 % (0.0-0.8); Hematocrit 26.9 VOL% (42.0-52.0); Lymphocytes # 0.7 10*3/uL (1.4-4.0); Lymphocytes % 2.3 % (21.2-54.2); Mean Corpuscular HGB Conc 33.5 GM/DL (32-36); Mean Corpuscular Volume 81.5 FL (87-102); Mean Platelet Volume 11.2 FL (9.6-12.0); Monocytes % 3.7 % (1.7-12.7); Neutrophils % 91.2 % (38.7-73.9); Platelet Count 232 T/CUMM (130-400); Red Cell Distribution Width 15.7 % (9.3-17.3); White Blood Count 31.4 T/CUMM (4-12)
[2021-07-22 05:14] LABS: Albumin 1.1 G/DL (3.4-5.0); Bilirubin,Total 8.9 MG/DL (0.20-1.00); Calcium 7.3 MG/DL (8.5-10.1); Osmolality,Calculated 305.5 MOS/KG (273-304); Potassium 5.6 MMOL/L (3.5-5.1); Total Protein 4.1 G/DL (6.4-8.2)
[2021-07-22 06:10] LABS: INR 1.3; PT Patient Result 14.6 SECS (10.5-12.0)
[2021-07-22 06:16] LABS: ABG Base Excess -4.3 MMOL/L (-2.5-2.5); ABG HCO3 20.7 MMOL/L (20-26); ABG Oxygen Saturation 95.8 % (95-100); ABG PCO2 37.6 MM HG (35-48); ABG PH 7.359 (7.35-7.45); ABG PO2 93.8 MM HG (80-95); ABG TCO2 21.9 MMOL/L (23-27)
[2021-07-22 06:41] LABS: Band Neutrophils 2 % (0-10); Hypochromia 1+; Lymphocytes 3 % (20-55); Microcytosis 1+; Nucleated Red Blood Cells 2 (0-5); Ovalocytes Slight; Polychromasia Slight; Segmented Neutrophils 92 % (50-85); Target Cells Slight
[2021-07-22 06:42] LABS: Platelet Estimate Normal
[2021-07-22] MEDS: FAMOTIDINE 20 MG TABLET PER TUBE SCH (10:00)
[2021-07-22] MEDS: HEPARIN 5,000 UNIT/1 ML VIAL SUBCUT SCH ×2 (10:56→21:12)
[2021-07-22] MEDS ORDERED: SODIUM POLYSTYRENE SULFATE 15 GM/60 ML BOTTLE PO ONE (11:08)
[2021-07-22] MEDS: NOREPINEPHRINE 16 MG in SODIUM CHLORIDE 0.9% 234 ML IV PRN ×2 (11:41→18:16)
[2021-07-22] MEDS ORDERED: VANCOMYCIN INJ 1,500 MG in SODIUM CHLORIDE 0.9% 500 ML IV ONE (15:00)
[2021-07-23] MEDS: INSULIN REGULAR 100 UNIT/ML SUBCUT SCH ×3 (00:34→11:33)
[2021-07-23] MEDS: MEROPENEM 500 MG in SODIUM CHLORIDE 0.9% 100 ML IV SCH (02:16)
[2021-07-23] MEDS: HYDROCORTISONE 100 MG VIAL IV SCH (02:17)
[2021-07-23] MEDS: NOREPINEPHRINE 16 MG in SODIUM CHLORIDE 0.9% 234 ML IV PRN ×2 (02:56→09:43)
[2021-07-23 03:54] LABS: ABG Base Excess -4.7 MMOL/L (-2.5-2.5); ABG HCO3 20.4 MMOL/L (20-26); ABG Oxygen Saturation 96.5 % (95-100); ABG PCO2 47.5 MM HG (35-48); ABG PH 7.274 (7.35-7.45); ABG TCO2 20.8 MMOL/L (23-27)
[2021-07-23 04:35] LABS: Basophils # 0.1 10*3/uL (0.0-0.2); Basophils % 0.2 % (0.0-0.8); Hematocrit 25.3 VOL% (42.0-52.0); Hemoglobin 8.2 GM/DL (14.0-18.0); Lymphocytes # 0.8 10*3/uL (1.4-4.0); Lymphocytes % 2.6 % (21.2-54.2); Mean Corpuscular HGB Conc 32.4 GM/DL (32-36); Mean Corpuscular Volume 85.2 FL (87-102); Mean Platelet Volume 11.3 FL (9.6-12.0); Monocytes % 3.6 % (1.7-12.7); Neutrophils % 91.8 % (38.7-73.9); Platelet Count 211 T/CUMM (130-400); Red Blood Count 2.97 MC/CUMM (3.8-5.5); Red Cell Distribution Width 16.9 % (9.3-17.3); White Blood Count 31.8 T/CUMM (4-12)
[2021-07-23 05:00] LABS: Band Neutrophils 4 % (0-10); Hypochromia Slight; Lymphocytes 3 % (20-55); Nucleated Red Blood Cells 1 (0-5); Platelet Estimate Normal; Segmented Neutrophils 88 % (50-85)
[2021-07-23 05:02] LABS: Bilirubin,Total 8.6 MG/DL (0.20-1.00); Calcium 6.7 MG/DL (8.5-10.1); Osmolality,Calculated 310.1 MOS/KG (273-304); Total Protein 4.1 G/DL (6.4-8.2)
[2021-07-23 05:04] LABS: Potassium 6.5 MMOL/L (3.5-5.1)
[2021-07-23] MEDS ORDERED: INSULIN REGULAR 10 UNIT, CALCIUM GLUCONATE 1,000 MG in DEXTROSE 10% 250 ML IV ONE (08:03)
[2021-07-23] MEDS ORDERED: SODIUM POLYSTYRENE SULFATE 15 GM/60 ML BOTTLE PO SCH (08:30)
[2021-07-23] MEDS: FAMOTIDINE 20 MG TABLET PER TUBE SCH (09:26)
[2021-07-23] MEDS: HEPARIN 5,000 UNIT/1 ML VIAL SUBCUT SCH (09:26)
[2021-07-23] MEDS ORDERED: PHENYLEPHRINE INJ 160 MG in SODIUM CHLORIDE 0.9% 234 ML IV PRN (09:46)
[2021-07-23] MEDS ORDERED: LORazepam 2 MG/1 ML VIAL IV PRN (15:10)
== END 2021-07-23 15:20 | disposition expired | DRG 329 ==
LOC: N.ED 06:51 → N.EDINP 09:36 → SUATTDRO 09:36 → N.EDINP 15:10 → N.3E 16:04 → N.ICU 18:36
PROVIDERS: ADMIT Family Medicine; ATTEND Internal Medicine